=== PATIENT | male | born 1995 | race Caucasian/White ===

== ENCOUNTER 2025-05-23 06:52 | Emergency (ER) | payer OTHER, SELFPAY ==
[2025-05-23 06:52] VITALS: BP 155/97; PULSE 79; RESP 18; TEMP 36.2; O2SAT 98
--- NOTE | 2025-05-23 07:13 | ED_ITS ---
HPI - Wound/Laceration General Chief Complaint: Wound/Laceration Stated Complaint: CUT ON FINGER Time Seen by Provider: 05/23/25 07:11 Source: patient Mode of arrival: ambulatory Limitations: no limitations History of Present Illness HPI narrative: 29 y/o male with no PMH presents with skin avulsions of palmar surface of his L 2,3, 4 fingers, no other injuries. Has good ROM with no numbness or tingling. injuriy with hedge trimmers yesterday. Onset (ago): day(s) Place: outdoors Patient tetanus UTD: No Context: accidental Related Data Allergies Allergy/AdvReac Type Severity Reaction Status Date / Time Sulfa (Sulfonamide Allergy Mild Rash Verified 05/23/25 07:05 Antibiotics) Review of Systems Review of Systems: All systems reviewed & are unremarkable except as noted in HPI and below Exam Const: General: healthy appearing and no acute distress Nutritional A ppearance: well nourished and obese Skin: General skin exam: normal color Rashes: no rashes Wounds: wounds noted Neuro: General: patient oriented x3 and moves all extremities Psych: Mental Status: mental status grossly normal Course Course Emergency Course: Med decesion narrative: pt evaluated in ER and PE exam performed and witnessed by nurse. Area was cleaned, dermabond applied. Pt doing well Sx stable Pt agrees with shared medical decision & with discharge All ques, answered to Pt satisfaction Vital Signs Vital signs: Vital Signs Temperature 36.2 C L 05/23/25 06:52 Pulse Rate 79 05/23/25 06:52 Respiratory Rate 18 05/23/25 06:52 Blood Pressure 155/97 H 05/23/25 06:52 Pulse Oximetry 98 05/23/25 06:52 Oxygen Delivery Room Air 05/23/25 06:52 Temperature 36.2 C L 05/23/25 06:52 Pulse Rate 79 05/23/25 06:52 Respiratory Rate 18 05/23/25 06:52 Blood Pressure 155/97 H 05/23/25 06:52 Pulse Oximetry 98 05/23/25 06:52 Oxygen Delivery Room Air 05/23/25 06:52 Procedures Laceration Laceration 1: Date: 05/23/25 Time: 07:20 Site: hand Side (If applicable): left Size (cm): 2 Description: irregular and clean Depth: simple, single layer Pre-repair: irrigated and irrigated extensively ====== Skin Level ====== Skin layer closed with: dermabond ====== Subcutaneous Layer ====== ====== Muscle Layer ====== ====== Tendon Layer ====== Critical Care Time Critical Care Time Critical Care Time: No Discharge Plan Discharge Clinical Impression: Avulsion of skin Patient Disposition: Home Condition: Stable Instructions: Antibiotic Form, Skin Avulsion (ED), Skin Adhesive Care (ED) Additional Instructions: Follw up with PCP if symptoms should worsen Patient Language: Pakistani Follow-up/Referrals: Tish,MD [place] [Primary Care Provider, Family Practice] Time of Disposition: 07:21
[2025-05-23] MEDS: TETANUS,DIPHTHERIA,AC PERTUSSIS ADULT 0.5 ML (ADACEL) IM (07:21)
== END 2025-05-23 07:42 | disposition home or self-care (01) ==
PROVIDERS: Emergency Provider Emergency Medicine; PCP Family Medicine
DX: S61.211A Laceration without foreign body of left index finger without damage to nail, initial encounter (principal); S61.213A Laceration without foreign body of left middle finger without damage to nail, initial encounter; S61.215A Laceration without foreign body of left ring finger without damage to nail, initial encounter; W27.1XXA Contact with garden tool, initial encounter; Z23 Encounter for immunization
CPT/HCPCS: 12001; 90471; 90715; 99283